=== PATIENT | male | born 1930 | race Caucasian/White ===

== ENCOUNTER 2019-04-10 11:29 | Observation (INO) | payer MEDICARE, OTHER ==
[~2019-04-10] VITALS: Ht 172.7 cm; Wt 77.1 kg
[2019-04-10] MEDS ORDERED: DEXTROSE 5%/0.9% SOD CHL 1,000 ML IV ONE ×2 (12:00→16:45)
[2019-04-10 12:47] LABS: BASOPHILS % 0.9 % (0.0-1.0); EOSINOPHILS # (AUTO) 0.1 (0.0-0.4); EOSINOPHILS % 2.6 % (0.0-6.0); HEMATOCRIT 40.7 % (38.2-49.6); HEMOGLOBIN 13.7 g/dL (14.0-18.0); LYMPHOCYTES # (AUTO) 1.1 (1.0-3.2); LYMPHOCYTES % 24.1 % (18.0-39.1); MEAN CORPUSCULAR HEMOGLOBIN 30.2 pg (28-32); MEAN CORPUSCULAR HGB CONC 33.7 g/dL (31-35); MEAN CORPUSCULAR VOLUME 89.8 fL (81-99); MONOCYTES # (AUTO) 0.5 (0.2-0.8); MONOCYTES % 10.4 % (4.4-11.3); NEUTROPHILS # (AUTO) 2.9 (2.1-6.9); NEUTROPHILS % 61.8 % (38.7-80.0); PLATELET COUNT 144 x10e3/uL (140-360); RED BLOOD COUNT 4.53 x10e6/uL (4.3-5.7); RED CELL DISTRIBUTION WIDTH 13.6 % (11.7-14.4)
[2019-04-10 12:55] LABS: ANION GAP 12.6 mmol/L (8-16); CALCIUM 9.3 mg/dL (8.4-10.2); CREATININE, SERUM 1.52 mg/dL (0.72-1.25); POTASSIUM 3.6 mmol/L (3.5-5.1)
[2019-04-10] MEDS ORDERED: ONDANSETRON HCL INJ 2MG/ML 2ML 2 MG/ML VIAL IV PRN (16:45)
[2019-04-10 17:29] VITALS: BP 161/74
[2019-04-10 17:34] VITALS: BP 161/74
[2019-04-10 19:52] VITALS: BP 161/74
[2019-04-10 20:00] VITALS: BP 125/57
[2019-04-11] VITALS: BP 124/59
[2019-04-11 05:22] VITALS: BP 110/77
[2019-04-11 05:33] LABS: BASOPHILS # (AUTO) 0.1 (0.0-0.1); BASOPHILS % 0.9 % (0.0-1.0); EOSINOPHILS # (AUTO) 0.2 (0.0-0.4); EOSINOPHILS % 3.4 % (0.0-6.0); HEMATOCRIT 36.4 % (38.2-49.6); HEMOGLOBIN 12.9 g/dL (14.0-18.0); LYMPHOCYTES # (AUTO) 1.9 (1.0-3.2); MEAN CORPUSCULAR HEMOGLOBIN 31.7 pg (28-32); MEAN CORPUSCULAR HGB CONC 35.4 g/dL (31-35); MEAN CORPUSCULAR VOLUME 89.4 fL (81-99); MONOCYTES # (AUTO) 0.7 (0.2-0.8); MONOCYTES % 12.1 % (4.4-11.3); NEUTROPHILS # (AUTO) 2.6 (2.1-6.9); NEUTROPHILS % 48.2 % (38.7-80.0); PLATELET COUNT 129 x10e3/uL (140-360); RED BLOOD COUNT 4.07 x10e6/uL (4.3-5.7); RED CELL DISTRIBUTION WIDTH 13.6 % (11.7-14.4)
[2019-04-11 05:48] LABS: ANION GAP 10.4 mmol/L (8-16); CALCIUM 9.1 mg/dL (8.4-10.2); CREATININE, SERUM 1.53 mg/dL (0.72-1.25); POTASSIUM 4.4 mmol/L (3.5-5.1)
[2019-04-11 07:38] VITALS: BP 119/85
--- NOTE | 2019-04-11 08:10 | NUR ---
patient up in bed, eating breakfast. patient keep taking tele box off, redirected him and educated to place tele, not in any distress,
[2019-04-11 08:41] VITALS: BP 119/85
--- NOTE | 2019-04-11 10:41 | NUR ---
Patient pulled his IV off and refused to put new one, he was stating "I'm ready to go Home", paged Dr Ramirez.
[2019-04-11 11:47] VITALS: BP 149/67
[2019-04-11 15:31] VITALS: BP 122/61
--- NOTE | 2019-04-11 19:50 | NUR ---
Received report from previous nurse that patient needs just discharged instructions. Previous nurse took out IV and cath was attached. Patient and family members given written discharge instructions and understood with no questions. Patient left via wheelchair with his belongings. Addendum: 04/11/19 at 2000 by Eda Andrew RN Patient took out IV not the previous nurse.
== END 2019-04-11 19:50 | disposition home or self-care (01) ==
LOC: ER 11:29 → ERHOLD 16:50 → IMCU 17:10
PROVIDERS: ADMIT Internal Medicine; ATTEND Internal Medicine
DX: T38.3X1A Poisoning by insulin and oral hypoglycemic [antidiabetic] drugs, accidental (unintentional), initial encounter (principal); I10 Essential (primary) hypertension; Z86.73 Personal history of transient ischemic attack (TIA), and cerebral infarction without residual deficits
CPT/HCPCS: 36415 ×2; 80048 ×2; 82948 ×2; 85025 ×2; 97110; 97161; 99284; G0378 ×2; J7042